=== PATIENT | male | born 1965 | race Caucasian/White ===

== ENCOUNTER 2022-05-18 00:45 | Emergency (ER) | payer OTHER ==
[2022-05-18] MEDS ORDERED: Sodium Chloride 0.9% 10 ML Syringe FLUSH PRN (01:14)
[2022-05-18] MEDS ORDERED: Morphine 4 MG/ML VIAL IVPUSH ONE ×3 (01:14→02:43)
[2022-05-18] MEDS ORDERED: Sodium Chloride 0.9% 1,000 ML IV SCH (01:30)
[2022-05-18] MEDS ORDERED: Ondansetron 4 MG/2 ML SDV IVPUSH ONE (01:44)
[2022-05-18 03:14] LABS: ESTIMATED GFR 43 mL/min (>60)
[2022-05-18] MEDS ORDERED: cefOXitin 2 GM Vial IVPUSH ONE (03:21)
[2022-05-18 04:51] VITALS: BP 150/81; PULSE 66
== END 2022-05-18 03:45 ==
LOC: FB.ED 00:45
DX: R10.9 Unspecified abdominal pain (principal); I10 Essential (primary) hypertension; Z79.899 Other long term (current) drug therapy
CPT/HCPCS: 36415; 80053; 81001; 85025; 85610; 85730; 96361; 96374; 96375; 96376; 99284-25; 99285; J2270; J2405; J3490; J7030